=== PATIENT | male | born 1945 | race Caucasian/White ===

== ENCOUNTER 2020-01-26 09:01 | Outpatient (REF) | payer MEDICARE, SELFPAY ==
[2020-01-26 10:28] LABS: Glucose Urine UA NEG (NEG); Leukocyte Esterase Urine NEG (NEG); Nitrite Urine NEG (NEG); PH 5.5 (5.0-8.0); Specific Gravity - Urine 1.025 (1.005-1.025); Urine Blood TRACE (NEG); Urine Ketones NEG (NEG); Urine Protein NEG (NEG-TRACE)
[2020-01-26 10:32] LABS: Color Urine YELLOW
[2020-01-26 10:33] LABS: Appearance Urine CLEAR
[2020-01-26 10:42] LABS: Anion Gap 11 (12-20); Blood Urea Nitrogen 16 mg/dL (9-16); Calcium 9.7 mg/dL (8.4-10.2); Carbon Dioxide 28 mmol/L (22-29); Chloride 106 mmol/L (96-108); Estimated Glomerular Filt Rate 55; Potassium 4.7 mmol/l (3.3-5.1); Sodium 140 mmol/L (135-145)
[2020-01-26 10:48] LABS: RBC Urine 0 /HPF (0); Squamous Epithelial Cell Urine TRACE /LPF; WBC Urine 0 /HPF (0-4)
[2020-01-26 11:07] LABS: Creatinine Urine 180.34 mg/dL; Microalbum/Creatinine Ratio Ur 13.8 ug/mg cr
[2020-01-26 11:09] LABS: Phosphorus 2.4 mg/dL (2.7-4.5)
[2020-01-26 13:40] LABS: Renal w Reflex Lab Use Only Order verified
== END 2020-01-26 09:02 | disposition home or self-care (01) ==
LOC: HO.LAB 09:01
PROVIDERS: PCP Internal Medicine; Visit Provider Internal Medicine Nephrology
DX: I13.0 Hypertensive heart and chronic kidney disease with heart failure and stage 1 through stage 4 chronic kidney disease, or unspecified chronic kidney disease (principal); N18.30 Chronic kidney disease, stage 3 unspecified; I50.9 Heart failure, unspecified; N28.9 Disorder of kidney and ureter, unspecified; N28.1 Cyst of kidney, acquired; E83.52 Hypercalcemia
CPT/HCPCS: 80051; 81001; 81003; 82043; 82310; 82565; 84100; 84520

== ENCOUNTER 2020-03-14 09:21 | Outpatient (REF) | payer MEDICARE, SELFPAY ==
[2020-03-14 11:02] LABS: Alanine Aminotransferase 24 U/L (0-40); Albumin Level 4.5 g/dL (3.5-5.0); Alkaline Phosphatase 85 U/L (39-117); Anion Gap 15 (12-20); Aspartate Amino Transferase 19 U/L (5-37); Bilirubin Total 0.6 mg/dL (0.0-1.0); Blood Urea Nitrogen 16 mg/dL (9-16); Calcium 10.2 mg/dL (8.4-10.2); Carbon Dioxide 29 mmol/L (22-29); Chloride 102 mmol/L (96-108); Cholesterol 166 mg/dL; Estimated Glomerular Filt Rate 54; Glucose Fasting 87 mg/dL (60-99); HDL Cholesterol 51 mg/dL; LDL Cholesterol Calculated 86 mg/dl; Potassium 4.9 mmol/l (3.3-5.1); Sodium 141 mmol/L (135-145); Triglycerides 148 mg/dL
[2020-03-14 11:23] LABS: Vitamin D 25-OH Total 26.8 ng/mL (>30)
== END 2020-03-14 09:22 | disposition home or self-care (01) ==
LOC: HO.LAB 09:21
PROVIDERS: Absent Provider Nurse Practitioner Family; PCP Internal Medicine; Visit Provider Internal Medicine
DX: E78.00 Pure hypercholesterolemia, unspecified (principal); E55.9 Vitamin D deficiency, unspecified
CPT/HCPCS: 80053; 80061; 82306

== ENCOUNTER → 2020-04-27 09:46 | Outpatient (BNVA) | payer MEDICARE, SELFPAY | PROVIDERS: PCP Internal Medicine; Visit Provider Internal Medicine Pulmonary Disease | DX: J44.9 Chronic obstructive pulmonary disease, unspecified (principal); R05 Cough; R06.01 Orthopnea; R91.8 Other nonspecific abnormal finding of lung field | CPT/HCPCS: 99202 ==

== ENCOUNTER 2020-05-11 10:13 | Outpatient (REF) | payer MEDICARE, SELFPAY ==
--- NOTE | 2020-05-11 10:16 | CT_ITS ---
EXAMINATION: CT CHEST WITHOUT CONTRAST CLINICAL INFORMATION: Pulmonary nodule. COMPARISON: Previous chest CT April 2017 TECHNIQUE: Multidetector volumetric CT imaging of the chest was done. Axial MIP volume rendering provided. Sagittal and coronal reformatted images were obtained. This CT examination was performed using dose optimization techniques as appropriate, variously including the following: *Automated exposure control *Adjustment of mA and/or kV according to patient size (this includes techniques or standardized protocols for targeted exams where dose is matched to indication/reason for exam; i.e. 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 There are areas of increased peripheral interstitial markings with increased peripheral reticulation and traction bronchiolectasis seen in the bilateral upper lobes, left greater than right. This does not appear appreciably changed. No pulmonary nodule is seen. MEDIASTINUM: The visualized thyroid gland is normal. There are small mediastinal lymph nodes that are stable. No enlarged lymph nodes are seen. The heart does not appear enlarged. There is no pericardial effusion. There is no coronary artery calcification. The aortic arch and descending thoracic aorta are upper normal in caliber. PLEURA: There is no pleural effusion. No pleural mass or thickening. AXILLA: No lymphadenopathy. UPPER ABDOMEN: The gallbladder has been removed. OSSEOUS STRUCTURES: There are degenerative changes of the spine. There is slight loss of height of the 9 vertebral body questionable for mild old compression fracture. This appears unchanged. CT/CT chest wo con IMPRESSION: Mild paraseptal emphysema. Mild bilateral upper lung interstitial disease similar to April 2017 exam. No pulmonary nodule seen. Mild coronary artery calcification. Upper normal-size thoracic aorta.
== END 2020-05-11 10:14 | disposition home or self-care (01) ==
LOC: HO.CT 10:13
PROVIDERS: Visit Provider Internal Medicine Pulmonary Disease
DX: R91.8 Other nonspecific abnormal finding of lung field (principal)
CPT/HCPCS: 71250

== ENCOUNTER 2020-05-18 09:44 | Outpatient (REF) | payer MEDICARE, SELFPAY | END 2020-05-18 09:45 | disposition home or self-care (01) | LOC: HO.RESP 09:44 | PROVIDERS: Visit Provider Internal Medicine Pulmonary Disease | DX: J44.9 Chronic obstructive pulmonary disease, unspecified (principal) | CPT/HCPCS: 99212 ==

== ENCOUNTER → 2020-06-01 13:49 | Outpatient (REF) | payer MEDICARE, SELFPAY ==
--- NOTE | 2020-06-01 13:53 | CA_ITS ---
Transthoracic Echocardiogram Patient (Last, First, Middle): Richard Hardwick, Gender: Male Date of : 1945 Age: 75 Procedure Date: 06/01/2020 Procedure Type: Transthoracic Echocardiogram Location: OP Height: 175.26 cm Weight: 83.01 kg BSA: 1.99 m2 Heart Rate: bpm BP: 150 / 78 mmHg Supervisor Assembly Room: OLIVE Mejia MD: Rodrigo Medel MD Supervisor Opening And Picking: Jett Christianson MD Symptoms: R06.01 - Orthopnea Study Quality: Good ECG Rhythm: Sinus Conclusions: - Essentially normal study for his age Findings Left Ventricle Normal left ventricular size, thickness, and systolic function. The visually estimated ejection fraction is between 60-65%. Spectral Doppler is indicative of an impaired relaxation filling pattern. E/E prime ratio is <8, consistent with normal filling pressures. Evidence suggests grade I (mild) diastolic dysfunction. Right Ventricle Normal right ventricular cavity size and systolic function. Atria Both atria are normal in size. Interatrial shunt cannot be excluded. Aortic Valve Normal aortic valve structure and function. There is no aortic valve stenosis. There is no aortic valve regurgitation. Mitral Valve Normal mitral valve structure and function. There is trace mitral valve regurgitation. There is no mitral valve stenosis. Pulmonic Valve The pulmonic valve was not well visualized. Tricuspid Valve Likely normal tricuspid valve structure and function. There is trace tricuspid valve regurgitation. The right ventricular systolic pressure is normal. The right ventricular systolic pressure is 17 mmHg. Normal right atrial pressure. There is no evidence of pulmonary hypertension. Great Vessels All visible segments of the aorta are normal in size. The pulmonary artery was not well visualized. Venous The inferior vena cava is normal in size and collapses greater than 50% with inspiration. Pericardium/Pleural There is no evidence of pericardial effusion. Prior Study Comparison No prior study available for comparison. Recommendations, Care & Conclusions Recommend contrast study to evaluate intracardiac shunting. Measurements 2D Linear Measurements IVSd: 1.04 0.6-0.9/0.6-1.0 cm LVIDd: 4.18 3.9-5.3/4.2-5.9 cm LVIDd Index: 2.10 2.4-3.2/2.2-3.1 cm/m2 LVIDs: 2.25 2.0-3.6 cm LVPWd: 1.05 0.7-1.1 cm Ao Root: 3.70 2.1-3.5 cm LA Diam: 3.30 2.7-3.8/3.0-4.0 cm LAIDs Index: 1.66 1.5-2.3 cm/m2 LV Mass: 180.40 67-162/88-224 g LV Mass Index: 90.65 43-95/49-115 g/m2 LVOT Diam: 2.20 3.0+(-)1.3 cm 2D Systolic Function EF 4C: 55.20 >55% EF 2C: 70.50 >55% EF BiP: 65.20 >55% Mitral Valve MV Pk E: 0.75 MV PK A: 0.85 MV Decel Time: 250.00 E/A: 0.90 E'Lateral: 9.14 E'Medial: 6.96 E/E' Med: 10.80 E/E' Lat: 8.20 PHT: 73.00 MVA PHT: 3.01 Decel Hunt: 3.01 Aortic Valve AoV Pk Filipe: 1.81 AoV Mn Filipe: 1.12 AoV VTI: 0.33 AoV Pk Grad: 13.00 Aov Mn Grad: 6.00 JUSTEN Cont.VTI: 2.79 LVOT LVOT Pk Filipe: 1.35 LVOT Mn Filipe: 0.83 LVOT VTI: 0.24 LVOT Pk Grad: 7.00 LVOT Mn Grad: 3.00 LVOT Diam: 2.20 LVOT Area: 3.80 Diastolic Function MV Pk E: 0.75 MV Pk A: 0.85 E/A: 0.90 E'Medial: 6.96 E/E' Med: 10.80 E' Laterial: 9.14 E/E' Lat: 8.20 Tricuspid Valve TR Pk Filipe: 1.89 TR Pk Grad: 14.00 RA Press: 3.00 RVSP: 17.00 Great Vessels Aorta Ao Root-2D: 3.70 2.0-3.7 cm Ao Asc: 3.30 2.1-3.4 cm Ao Arch: 3.10 Updated in Other Vendor System with Status of Final Jett Christianson MD electronically signed on 06/02/2020 12:42:25 PM with status of Final
== END ==
LOC: HO.CARD 13:49
PROVIDERS: PCP Internal Medicine; Visit Provider Internal Medicine Pulmonary Disease
DX: R06.01 Orthopnea (principal)
CPT/HCPCS: 93306

== ENCOUNTER → 2020-06-22 10:45 | Outpatient (BNVA) | payer MEDICARE, SELFPAY | PROVIDERS: PCP Internal Medicine; Visit Provider Internal Medicine Pulmonary Disease | DX: J44.9 Chronic obstructive pulmonary disease, unspecified (principal); R91.8 Other nonspecific abnormal finding of lung field; Z87.891 Personal history of nicotine dependence | CPT/HCPCS: 99212 ==

== ENCOUNTER 2020-09-06 09:11 | Outpatient (REF) | payer MEDICARE, SELFPAY ==
[2020-09-06 10:12] LABS: MANUAL DIFF FLAG NO
[2020-09-06 10:16] LABS: Basophils Absolute Auto 0.1 X10*3/uL (0.0-0.2); Basophils Percent Auto 0.8 % (0-2); Eosinophils Absolute Auto 0.5 X10*3/uL (0.0-0.4); Eosinophils Percent Auto 4.7 % (0-4); Hematocrit 44.3 % (42-52); Hemoglobin 14.3 g/dl (14.0-18.0); Imm Gran Abs Auto 0.04 X10*3/uL (0.00-0.03); Imm Gran Pct Auto 0.4 % (0.0-0.4); Lymphocytes Absolute Auto 2.6 X10*3/uL (1.2-4.9); Lymphocytes Percent Auto 25.3 % (20-40); Mean Corpuscular HGB Conc 32.3 g/dl (31.0-36.0); Mean Corpuscular Hemoglobin 28.9 pg (27.0-33.0); Mean Corpuscular Volume 89.5 fL (80-98); Mean Platelet Volume 9.2 fL (9.4-12.4); Monocytes Absolute Auto 0.8 X10*3/uL (0.1-1.2); Monocytes Percent Auto 7.9 % (2-11); Neutrophils Absolute Auto 6.3 X10*3/uL (2.0-8.3); Neutrophils Percent Auto 60.9 % (45-73); Platelet Count 392 X10*3/uL (160-400); Red Blood Count 4.95 X10*6/uL (4.60-5.80); Red Cell Distribution Width 14.3 % (11.0-16.0); White Blood Count 10.4 X10*3/uL (4.8-10.8)
[2020-09-06 10:41] LABS: Phosphorus 2.8 mg/dL (2.7-4.5)
[2020-09-06 10:44] LABS: Alanine Aminotransferase 21 U/L (0-40); Albumin Level 4.5 g/dL (3.5-5.0); Alkaline Phosphatase 84 U/L (39-117); Anion Gap 12 (12-20); Aspartate Amino Transferase 15 U/L (5-37); Bilirubin Total 0.7 mg/dL (0.0-1.0); Blood Urea Nitrogen 18 mg/dL (9-16); Calcium 10.3 mg/dL (8.4-10.2); Carbon Dioxide 28 mmol/L (22-29); Chloride 104 mmol/L (96-108); Cholesterol 158 mg/dL; Estimated Glomerular Filt Rate 55; Glucose Fasting 111 mg/dL (60-99); HDL Cholesterol 50 mg/dL; LDL Cholesterol Calculated 83 mg/dl; Potassium 4.4 mmol/L (3.3-5.1); Sodium 140 mmol/L (135-145); Triglycerides 128 mg/dL
[2020-09-06 11:38] LABS: Renal w Reflex Lab Use Only Order verified
[2020-09-10 12:16] LABS: Vitamin D 25-OH, D2 <4 ng/mL; Vitamin D 25-OH, D3 28 ng/mL; Vitamin D 25-OH, Total 28 ng/mL (30-100)
== END 2020-09-06 09:12 | disposition home or self-care (01) ==
LOC: HO.LAB 09:11
PROVIDERS: Nurse Practitioner Family; PCP Internal Medicine; Visit Provider Internal Medicine Nephrology
DX: E78.00 Pure hypercholesterolemia, unspecified (principal); E78.5 Hyperlipidemia, unspecified; J45.909 Unspecified asthma, uncomplicated; I13.0 Hypertensive heart and chronic kidney disease with heart failure and stage 1 through stage 4 chronic kidney disease, or unspecified chronic kidney disease; N18.30 Chronic kidney disease, stage 3 unspecified; N28.1 Cyst of kidney, acquired; N28.9 Disorder of kidney and ureter, unspecified; E83.52 Hypercalcemia
CPT/HCPCS: 36415; 80053; 80061; 82306; 84100; 85025

== ENCOUNTER → 2020-10-12 16:01 | Outpatient (BNVA) | payer MEDICARE, SELFPAY | PROVIDERS: PCP Internal Medicine; Visit Provider Urology | DX: N28.1 Cyst of kidney, acquired (principal) | CPT/HCPCS: 99212 ==

== ENCOUNTER → 2020-10-26 09:53 | Outpatient (BNVA) | payer MEDICARE, SELFPAY | PROVIDERS: PCP Internal Medicine; Visit Provider Internal Medicine Pulmonary Disease | DX: J44.9 Chronic obstructive pulmonary disease, unspecified (principal); R91.8 Other nonspecific abnormal finding of lung field | CPT/HCPCS: 99212 ==

== ENCOUNTER 2020-11-09 09:29 | Outpatient (REF) | payer MEDICARE, SELFPAY ==
[2020-11-09 10:35] LABS: MANUAL DIFF FLAG NO
[2020-11-09 10:46] LABS: Basophils Absolute Auto 0.1 X10*3/uL (0.0-0.2); Basophils Percent Auto 1.3 % (0-2); Eosinophils Absolute Auto 0.6 X10*3/uL (0.0-0.4); Eosinophils Percent Auto 7.4 % (0-4); Hematocrit 44.9 % (42-52); Hemoglobin 14.6 g/dl (14.0-18.0); Imm Gran Abs Auto 0.03 X10*3/uL (0.00-0.03); Imm Gran Pct Auto 0.4 % (0.0-0.4); Lymphocytes Absolute Auto 2.5 X10*3/uL (1.2-4.9); Mean Corpuscular HGB Conc 32.5 g/dl (31.0-36.0); Mean Corpuscular Hemoglobin 28.6 pg (27.0-33.0); Mean Corpuscular Volume 87.9 fL (80-98); Mean Platelet Volume 9.4 fL (9.4-12.4); Monocytes Absolute Auto 0.8 X10*3/uL (0.1-1.2); Monocytes Percent Auto 8.8 % (2-11); Neutrophils Absolute Auto 4.5 X10*3/uL (2.0-8.3); Neutrophils Percent Auto 53.1 % (45-73); Platelet Count 368 X10*3/uL (160-400); Red Blood Count 5.11 X10*6/uL (4.60-5.80); White Blood Count 8.5 X10*3/uL (4.8-10.8)
[2020-11-09 10:57] LABS: Alanine Aminotransferase 19 U/L (0-40); Albumin Level 4.4 g/dL (3.5-5.0); Alkaline Phosphatase 88 U/L (39-117); Anion Gap 10 (12-20); Aspartate Amino Transferase 17 U/L (5-37); Bilirubin Total 0.6 mg/dL (0.0-1.0); Blood Urea Nitrogen 18 mg/dL (9-16); Calcium 10.3 mg/dL (8.4-10.2); Carbon Dioxide 29 mmol/L (22-29); Chloride 104 mmol/L (96-108); Cholesterol 142 mg/dL; Estimated Glomerular Filt Rate 46; Glucose Fasting 106 mg/dL (60-99); HDL Cholesterol 43 mg/dL; LDL Cholesterol Calculated 79 mg/dl; Potassium 4.9 mmol/L (3.3-5.1); Sodium 138 mmol/L (135-145); Total Protein 7.9 g/dL (6.5-8.0); Triglycerides 102 mg/dL
[2020-11-09 11:21] LABS: Vitamin D 25-OH Total 27.7 ng/mL (>30)
== END 2020-11-09 09:30 | disposition home or self-care (01) ==
LOC: HO.LAB 09:29
PROVIDERS: PCP Internal Medicine; Visit Provider Internal Medicine
DX: E78.00 Pure hypercholesterolemia, unspecified (principal); I10 Essential (primary) hypertension; K21.9 Gastro-esophageal reflux disease without esophagitis
CPT/HCPCS: 36415; 80053; 80061; 82306; 85025

== ENCOUNTER 2020-12-10 12:11 | Emergency (ER) | payer MEDICARE, SELFPAY ==
--- NOTE | ~2020-12-10 | XR_ITS ---
EXAMINATION: XR CHEST CLINICAL INFORMATION: Cough COMPARISON: Previous chest x-ray August [address] May 2020 TECHNIQUE: Frontal view of the chest was obtained. FINDINGS: The cardiac and mediastinal contours are stable. The lungs are clear. There is no pleural effusion or pneumothorax. There may be mild midthoracic vertebral body compression fractures. There is bulge previous chest CT scan. No acute bone abnormality is seen. XR/XR chest 1V IMPRESSION: No evidence for acute disease in the chest.
[2020-12-10 12:24] VITALS: BP 183/72; PULSE 78; RESP 16; TEMP 36.7; O2SAT 94; BMI 28.6
[2020-12-10 13:20] LABS: Influenza A PCR NEGATIVE (Negative); Influenza B PCR NEGATIVE (Negative); Resp Syncy Virus RNA Qual PCR NEGATIVE (Negative); SARS COV2 PCR INHOUSE NEGATIVE (Negative)
[2020-12-10 15:17] VITALS: BP 157/73; PULSE 75; RESP 16; TEMP 36.6; O2SAT 97
--- NOTE | 2020-12-10 16:23 | ED_ITS ---
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 He states that this cough has resulted in him having pain in his upper abdomen as chest wall due to difficulty in controlling the cough. He is former smoker but denies any history of COPD or asthma as well as denies any history of diabetes. Patient denies any associated fever, chills, sore throat, GI or symptoms and denies any increase in shortness of breath or bilateral lower extremity swelling. Patient has had both COVID-19 vaccines. Related Data Home Medications Medication Instructions Recorded Confirmed cholecalciferol (vitamin D3) 50 50 mcg PO DAILY 02/12/20 11/10/20 mcg (2,000 unit) tablet simethicone 125 mg chewable tablet 125 mg PO BID-QID PRN 02/12/20 11/10/20 (Gas Relief (simethicone)) dicyclomine 10 mg capsule [id number] mg PO QID PRN 03/17/20 11/10/20 budesonide-formoterol HFA 80 2 puff INHALATION BID 10/12/20 11/10/20 mcg-4.5 mcg/actuation aerosol inhaler cetirizine 10 mg tablet 10 mg PO DAILY PRN 10/12/20 11/10/20 ketotifen fumarate 0.025 % (0.035 1 drp OPHTHALMIC-RIGHT TID PRN 10/12/20 11/10/20 %) eye drops Previous Rx's Medication Instructions Recorded montelukast 10 mg tablet 10 mg PO BEDTIME 90 Days #90 tab 04/26/20 ipratropium 0.5 mg-albuterol 3 mg 3 ml INHALATION Q4-6H PRN 30 Days 04/27/20 (2.5 mg base)/3 mL nebulization #270 ml soln fluticasone propionate 50 1 spray INTRANASAL DAILY #48 ml 06/16/20 mcg/actuation nasal spray,suspension amlodipine 5 mg tablet 5 mg PO DAILY 90 Days #90 tab 07/13/20 albuterol sulfate 90 mcg/actuation 2 puff INHALATION Q6H PRN #25.5 g 08/17/20 aerosol inhaler atorvastatin 40 mg tablet 40 mg PO DAILY 90 Days #90 tab 11/14/20 hydroxyzine HCl 25 mg tablet 25 mg PO BID PRN 7 Days #14 tab 11/14/20 Trelegy Ellipta 100 mcg-62.5 1 inh PO DAILY #60 ea NS 12/05/20 mcg-25 mcg powder for inhalation (ixljwbimzws-zxxzlamtf-kekmgkuc) acetaminophen 500 mg tablet 500 mg PO Q6H PRN 90 Days #90 tab 12/08/20 lisinopril 10 mg tablet 10 mg PO DAILY 90 Days #90 tab 12/09/20 pantoprazole 40 mg tablet,delayed 40 mg PO DAILY 90 Days #90 tab 12/09/20 release benzonatate 100 mg capsule 100 mg PO TID PRN #10 cap 12/10/20 (Jeanette Falcon) Allergies Allergy/AdvReac Type Severity Reaction Status Date / Time Tetanus Toxoid Adsorbed Allergy Intermediate syncope Verified 12/10/20 12:34 Review of Systems Review of Systems: Pertinent positives and negatives as stated in HPI 10 point review of systems is otherwise negative. [facility] Past Medical History Source: nursing notes reviewed Medical History Allergic rhinitis Cough variant asthma Essential hypertension Foot callus GERD (gastroesophageal reflux disease) Mild asthma Moderate asthma Pure hypercholesterolemia Screening for colon cancer Urticaria Surgical History History of colonoscopy History of laparoscopic cholecystectomy Hx of cataract surgery Family History Family History Father No problems noted. Mother No problems noted. Paternal Grandmother Cancer Social History Social History Housing: Apartment Alcohol intake: current Alcohol intake frequency: holidays/special occasions only Alcohol type: beer Patient Tobacco Use Status: Former Tobacco user Advance Directives: Yes Advance Directives Information Provided: Yes Advance Directives on File: No service: No Current occupational status: retired Physical Exam Vital Signs: Vital Signs: Last Vital Signs Temp 97.9 F 12/10/20 15:17 Pulse 75 12/10/20 15:17 Resp 16 12/10/20 15:17 BP 157/73 H 12/10/20 15:17 Pulse Ox 97 12/10/20 15:17 Body Mass Index 28.6 VITAL SIGNS: Reviewed. GENERAL: Well developed, well nourished, in no acute distress. HEAD: Normocephalic/atraumatic EYES: PERRLA, EOMI OROPHARYNX: no oral lesions noted, posterior pharynx clear LUNGS: Patient speaking in full sentences, no tachypnea, no rhonchi, normal breath sounds. SpO2<97> CARDIOVASCULAR: Regular rate and rhythm without noted murmurs, no JVD or lower extremity edema. ABDOMEN: Soft, non-tender, non-distended with bowel sounds. SKIN: Inspection of the skin reveals no rashes NEUROLOGIC: Alert and oriented x 4. Strength and sensation to light touch were grossly intact x 4. Course Course Course Narrative: 75-year-old male with history and clinical presentation consistent with persistent cough without evidence to suggest CHF, COPD, infectious etiologies. COVID-19 testing as well as chest x-ray are without acute findings. Discussed with the patient and his son at bedside interventions at home wall patient awaits follow-up appointment with his primary care provider in the part february. Medical Decision Making Lab Data Labs: Lab Results 12/10/20 Range/Units 12:36 Coronavirus (PCR) NEGATIVE (Negative) Influenza Type A (PCR) NEGATIVE (Negative) Influenza Type B (PCR) NEGATIVE (Negative) RSV RNA Qual (PCR) NEGATIVE (Negative) Discharge Plan Discharge Clinical Impression: Cough Patient Disposition: Home, Self-Care Instructions: Benzonatate (By mouth), Cold Symptoms (ED) Additional Instructions: 1. Reanude todos los medicamentos caseros seg?n lo prescrito. 2. Humidificador de vapor fr?o junto a la cama mientras duerme por la noche. Tambi?n recomiende mildred ligera elevaci?n en las almohadas. 3. Danny un seguimiento con hirsch proveedor de atenci?n primaria el ifeoma por la ma?linda para mildred reevaluaci?n y m?s Manejo ambulatorio. Regrese a la celio de emergencias por un empeoramiento carmen de los s?ntomas. Prescriptions: New benzonatate [Tessalon Perles] 100 mg capsule 100 mg PO TID PRN (Reason: cough) Qty: 10 RF: 0 No Action montelukast 10 mg tablet 10 mg PO BEDTIME 90 Days Qty: 90 RF: 3 fluticasone propionate 50 mcg/actuation spray,suspension 1 spray intranasal DAILY Qty: 48 RF: 3 albuterol sulfate 90 mcg/actuation HFA aerosol inhaler 2 puff inhalation Q6H PRN (Reason: for wheezing) Qty: 25.5 RF: 1 hydroxyzine HCl 25 mg tablet 25 mg PO BID PRN (Reason: itching) 7 Days Qty: 14 RF: 0 atorvastatin 40 mg tablet 40 mg PO DAILY 90 Days Qty: 90 RF: 3 Trelegy Ellipta 100-62.5-25 mcg blister with device 1 inh PO DAILY Qty: 60 RF: 6 acetaminophen 500 mg tablet 500 mg PO Q6H PRN (Reason: fever or pain) 90 Days Qty: 90 RF: 0 pantoprazole 40 mg tablet,delayed release (DR/EC) 40 mg PO DAILY 90 Days Qty: 90 RF: 3 lisinopril 10 mg tablet 10 mg PO DAILY 90 Days Qty: 90 RF: 0 dicyclomine 10 mg capsule [id number] mg PO QID PRN (Reason: cramps) RF: 0 cholecalciferol (vitamin D3) 50 mcg (2,000 unit) tablet 50 mcg PO DAILY RF: 0 simethicone [Gas Relief (simethicone)] 125 mg tablet,chewable 125 mg PO BID-QID PRNRF: 0 amlodipine 5 mg tablet 5 mg PO DAILY 90 Days Qty: 90 RF: 3 ipratropium-albuterol 0.5 mg-3 mg(2.5 mg base)/3 mL solution for nebulization 3 ml inhalation Q4-6H PRN (Reason: wheezing) 30 Days Qty: 270 RF: 6 cetirizine 10 mg tablet 10 mg PO DAILY PRN (Reason: allergies) RF: 0 ketotifen fumarate 0.025 % (0.035 %) drops 1 drp ophthalmic-Right TID PRNRF: 0 budesonide-formoterol 80-4.5 mcg/actuation HFA aerosol inhaler 2 puff inhalation BID RF: 0 Referrals: Linda Heck MD [Primary Care Provider] - 2 days Print Language: Mongolian
== END 2020-12-10 16:49 | disposition home or self-care (01) ==
PROVIDERS: Emergency Provider Student in an Organized Health Care Education/Training Program; PCP Internal Medicine
DX: R05 Cough (principal); Z20.822 Contact with and (suspected) exposure to COVID-19; I10 Essential (primary) hypertension; J45.909 Unspecified asthma, uncomplicated; Z79.899 Other long term (current) drug therapy
CPT/HCPCS: 0241U; 36415; 71045; 99283; 99284

== ENCOUNTER 2020-12-14 09:39 | Outpatient (REF) | payer MEDICARE, SELFPAY ==
[2020-12-14 11:08] LABS: Anion Gap 11 (12-20); Blood Urea Nitrogen 13 mg/dL (9-16); Calcium 10.2 mg/dL (8.4-10.2); Carbon Dioxide 28 mmol/L (22-29); Chloride 105 mmol/L (96-108); Estimated Glomerular Filt Rate 50; Potassium 4.8 mmol/L (3.3-5.1); Sodium 139 mmol/L (135-145)
== END 2020-12-14 09:40 | disposition home or self-care (01) ==
LOC: HO.LAB 09:39
PROVIDERS: PCP Internal Medicine; Visit Provider Internal Medicine Nephrology
DX: N28.1 Cyst of kidney, acquired (principal); I12.9 Hypertensive chronic kidney disease with stage 1 through stage 4 chronic kidney disease, or unspecified chronic kidney disease; N18.31 Chronic kidney disease, stage 3a
CPT/HCPCS: 36415; 80051; 82310; 82565; 84520

== ENCOUNTER 2021-01-06 09:47 | Outpatient (REF) | payer MEDICARE, SELFPAY ==
[2021-01-06 11:23] LABS: Alanine Aminotransferase 19 U/L (0-40); Albumin Level 4.3 g/dL (3.5-5.0); Alkaline Phosphatase 80 U/L (39-117); Anion Gap 10 (12-20); Aspartate Amino Transferase 16 U/L (5-37); Bilirubin Total 0.8 mg/dL (0.0-1.0); Blood Urea Nitrogen 13 mg/dL (9-16); Calcium 10.1 mg/dL (8.4-10.2); Carbon Dioxide 29 mmol/L (22-29); Chloride 105 mmol/L (96-108); Cholesterol 143 mg/dL; Estimated Glomerular Filt Rate 49; Glucose Fasting 94 mg/dL (60-99); HDL Cholesterol 43 mg/dL; LDL Cholesterol Calculated 72 mg/dl; Potassium 4.8 mmol/L (3.3-5.1); Sodium 139 mmol/L (135-145); Total Protein 7.7 g/dL (6.5-8.0); Triglycerides 144 mg/dL
[2021-01-06 11:49] LABS: Vitamin D 25-OH Total 26.2 ng/mL (>30)
== END 2021-01-06 09:48 | disposition home or self-care (01) ==
LOC: HO.LAB 09:47
PROVIDERS: PCP Internal Medicine; Visit Provider Internal Medicine
DX: E78.00 Pure hypercholesterolemia, unspecified (principal); E78.5 Hyperlipidemia, unspecified; E55.9 Vitamin D deficiency, unspecified
CPT/HCPCS: 36415; 80053; 80061; 82306

== ENCOUNTER → 2021-02-06 12:44 | Outpatient (BNVA) | payer MEDICARE, SELFPAY | PROVIDERS: PCP Internal Medicine; Referring Provider Internal Medicine; Visit Provider Nurse Practitioner | DX: Z13.89 Encounter for screening for other disorder (principal) | CPT/HCPCS: 99202 ==

== ENCOUNTER → 2021-04-13 10:44 | Outpatient (BNVA) | payer MEDICARE, SELFPAY | PROVIDERS: PCP Internal Medicine; Visit Provider Internal Medicine Pulmonary Disease | DX: J44.9 Chronic obstructive pulmonary disease, unspecified (principal); R91.8 Other nonspecific abnormal finding of lung field; R05.3 Chronic cough | CPT/HCPCS: 99212 ==

== ENCOUNTER 2021-04-20 12:43 | Outpatient (REF) | payer MEDICARE, SELFPAY ==
--- NOTE | ~2021-04-20 | CT_ITS ---
EXAMINATION: CT CHEST WITHOUT CONTRAST CLINICAL INFORMATION: Abnormal lung findings. COMPARISON: Chest 12/10/2020. CT chest 05/11/2020. TECHNIQUE: Multidetector volumetric CT imaging of the chest was done. Axial MIP volume rendering provided. Sagittal and coronal reformatted images were obtained. This CT examination was performed using dose optimization techniques as appropriate, variously including the following: *Automated exposure control *Adjustment of mA and/or kV according to patient size (this includes techniques or standardized protocols for targeted exams where dose is matched to indication/reason for exam; i.e. 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 LUNGS: There is centrilobular and paraseptal emphysema. There is bilateral apical parenchymal scarring and pleural thickening. There are subpleural reticular interstitial changes in the left upper lobe posterior, lateral segment, apical and anterior segment right upper lobe. There is mild traction bronchiectasis in both upper lobes. There is no consolidation or mass or visible pulmonary nodule. MEDIASTINUM: The thyroid lobes are symmetrical and normal. The central trachea and the bronchi are widely patent. The heart size and the great vessels are normal. There are small shotty lymph nodes in the pretracheal space and the aortic window measuring less than 1 cm in short axis. PLEURA: There is no pleural effusion. No pleural mass or thickening. AXILLA: No lymphadenopathy. UPPER ABDOMEN: Visualized liver, spleen, pancreas and bilateral adrenal glands unremarkable. OSSEOUS STRUCTURES: No lytic or sclerotic process seen. There is mild ventral spondylosis mid dorsal spine. CT/CT chest wo con IMPRESSION: Mild centrilobular and paraseptal emphysema with minimal bilateral upper lobe especially left upper lobe interstitial changes. No pulmonary nodule, mass or consolidation seen. No major change compared to previous CT chest study 05/11/2020. Fleischner guidelines were followed.
== END 2021-04-20 12:44 | disposition home or self-care (01) ==
LOC: HO.CT 12:43
PROVIDERS: Visit Provider Internal Medicine Pulmonary Disease
DX: R91.8 Other nonspecific abnormal finding of lung field (principal)
CPT/HCPCS: 71250

== ENCOUNTER → 2021-05-10 10:13 | Outpatient (BNVA) | payer MEDICARE, SELFPAY | PROVIDERS: PCP Internal Medicine; Visit Provider Internal Medicine Pulmonary Disease | DX: J44.9 Chronic obstructive pulmonary disease, unspecified (principal); R91.8 Other nonspecific abnormal finding of lung field; R05.3 Chronic cough | CPT/HCPCS: 99212 ==

== ENCOUNTER 2021-05-16 07:36 | Day surgery (SDC) | payer MEDICARE, SELFPAY ==
[2021-05-11 10:07] VITALS: BMI 27.6
--- NOTE | 2021-05-15 09:16 | P.CONAN_ITS ---
Documented by User: Corine Maldonado NP 05/15/21 09:17 HPI - Anesthesia Eval Consult details Narrative: 76yo M for Colonoscopy PMFSH Active Problems Active Problems: All Active Problems (Updated 04/13/21 @ 11:05 by Rodrigo Medel MD) Chronic cough (Acute) Tubular adenoma of colon (Acute) Adult general medical exam (Acute) Glaucoma (Acute) Foot callus (Acute) Screening for colon cancer (Acute) Complex renal cyst (Acute) Urticaria (Acute) Pulmonary nodules (Acute) Asthma-COPD overlap syndrome (Acute) Orthopnea (Acute) Cough (Acute) Moderate asthma (Acute) Pure hypercholesterolemia (Acute) Cough variant asthma (Acute) Allergic rhinitis (Acute) Mild asthma (Acute) Essential hypertension (Acute) GERD (gastroesophageal reflux disease) (Acute) Past Medical History Medical History Allergic rhinitis Cough variant asthma Essential hypertension Foot callus GERD (gastroesophageal reflux disease) Mild asthma Moderate asthma Pure hypercholesterolemia Urticaria Family History Family History Father No problems noted. Mother No problems noted. Paternal Grandmother Cancer Surgical History Surgical History History of colonoscopy History of laparoscopic cholecystectomy Hx of cataract surgery Social History Social History Housing: Apartment Alcohol intake: current Alcohol intake frequency: does not drink Alcohol type: beer Patient Tobacco Use Status: Former Tobacco user Quit Date: 2014 Tobacco use type: Cigarette Years Smoked: 40+ e-Cigarette/Vaping Use: Never Used Second Hand Smoke Exposure: No Are you DNR?: No Advance Directives: No Advance Directives Information Provided: Yes Advance Directives on File: No service: No Current occupational status: retired Meds Allergies Allergy/AdvReac Type Severity Reaction Status Date / Time Tetanus Toxoid Adsorbed Allergy Intermediate syncope Verified 05/16/21 08:36 Home Medications Medication Instructions Recorded Confirmed Last Taken Type simethicone 125 mg chewable tablet 125 mg PO BID-QID PRN 02/12/20 05/11/21 Unknown History (Gas Relief (simethicone)) dicyclomine 10 mg capsule 10 - 20 mg PO QID PRN 03/17/20 05/11/21 Unknown History ketotifen fumarate 0.025 % (0.035 1 drp OPHTHALMIC-RIGHT TID PRN 10/12/20 05/11/21 Unknown History %) eye drops Exam Exam Date and Time: May 15, 2021 0916 Height,Weight and Vital Signs: Height 5 ft 9 in Weight 84.822 kg Pertinent Lab Results Pertinent Lab Results: Laboratory Tests 11/09/20 01/06/21 09:45 10:25 WBC 8.5 Hgb 14.6 Hct 44.9 Plt Count 368 Sodium 139 Potassium 4.8 Chloride 105 Carbon Dioxide 29 BUN 13 Creatinine 1.40 Narrative Narrative: ECHO 05/2020 Conclusions: - Essentially normal study for his age ? ? ? Assessment and Plan Assessment Anesthesia Assessment: Chart Reviewed Documented by User: Abrahan Hernandez MD 05/16/21 08:56 PMFSH Past Medical History Medical History Allergic rhinitis Cough variant asthma Essential hypertension Foot callus GERD (gastroesophageal reflux disease) Mild asthma Moderate asthma Pure hypercholesterolemia Urticaria Family History Family History Father No problems noted. Mother No problems noted. Paternal Grandmother Cancer Family history of problems with anesthesia: No Surgical History Surgical History History of colonoscopy History of laparoscopic cholecystectomy Hx of cataract surgery History of Problems with Anesthesia: No Social History Social History Housing: Apartment Alcohol intake: current Alcohol intake frequency: does not drink Alcohol type: beer Patient Tobacco Use Status: Former Tobacco user Quit Date: 2014 Tobacco use type: Cigarette Years Smoked: 40+ e-Cigarette/Vaping Use: Never Used Second Hand Smoke Exposure: No Are you DNR?: No Advance Directives: No Advance Directives Information Provided: Yes Advance Directives on File: No service: No Current occupational status: retired Meds Allergies Allergy/AdvReac Type Severity Reaction Status Date / Time Tetanus Toxoid Adsorbed Allergy Intermediate syncope Verified 05/16/21 08:36 Home Medications Medication Instructions Recorded Confirmed Last Taken Type simethicone 125 mg chewable tablet 125 mg PO BID-QID PRN 02/12/20 05/11/21 Unknown History (Gas Relief (simethicone)) dicyclomine 10 mg capsule 10 - 20 mg PO QID PRN 03/17/20 05/11/21 Unknown History ketotifen fumarate 0.025 % (0.035 1 drp OPHTHALMIC-RIGHT TID PRN 10/12/20 05/11/21 Unknown History %) eye drops Exam Airway Mallampati Class: II TM Dist: >3cm Neck ROM: Full Loose/Missing/Broken Teeth: Yes (all permanent caps) Heart: [id number] Lungs: cta b/l Assessment and Plan Assessment Anesthesia Assessment: Anesthesia Plan Discussed Final Anesthetic Review Family History of Problems with Anesthesia: No History of Problems with Anesthesia: No NPO: Yes ASA Class: III Final Preanesthetic Review: No Changes in Pt Med Stat, Meds/Allgs Chart Reviewed , Consent Obtained/Reviewed and Anes Risks/Benef Reviewed Patient Risk: Intermediate Procedure Risk: Intermediate Assessment/Block/Sedation in SS: Assess/Block/Sedation-SS Anesthetic Plan Anesthetic Plan: MAC: and Agree w/ Assess. and Plan Disposition: Standard PACU
[2021-05-16 08:38] VITALS: BP 170/76; PULSE 76; RESP 16; TEMP 37.3; O2SAT 97
[2021-05-16] MEDS: Lactated Ringers 1,000 ML 100 ML IVCONT (08:46)
--- NOTE | 2021-05-16 08:54 | MHC.SHP ---
Pre-Procedural Eval Section A Date of Service: 05/16/21 Section B Chief Complaint: Screening Relevant Family History (Specify if Yes): No Relevant Social History: None (ex smoker) Present Medications: see Short Stay Collaborative assessment Medical History: Significant History (Allergic rhinitis Cough variant asthma Essential hypertension Foot callus GERD (gastroesophageal reflux disease) Mild asthma Moderate asthma Pure hypercholesterolemia Urticaria) History of Previous Operations: Relevant previous surgery/procedure and date(s) (History of colonoscopy History of laparoscopic cholecystectomy Hx of cataract surgery) Allergies: Allergies Allergy/AdvReac Type Severity Reaction Status Date / Time Tetanus Toxoid Adsorbed Allergy Intermediate syncope Verified 05/16/21 08:36 Review of Systems Sugical H&P ROS: Negative: Constitution, Cardiovascular, Respiratory, Neurological, Psychiatric, Hem-Onc, Allergic/Immunologic, Gastrointestinal, Genitourinary, Musculoskeletal, Integumentary, Endocrine and Eyes/Ears/Nose/Throat Exam Surgical H&P Exam: Normal: HEENT, Normal: Heart, Normal: Lungs, Normal: Extremities, Normal: Abdomen, Normal: Skin and Normal: Neurological Plan Diagnosis/Plan: Unchanged I have reviewed the history and physical and performed a pertinent physical examination on my patient. No changes have occurred unless specified.
--- NOTE | 2021-05-16 08:55 | PM.OP ---
Brief Operative Note Date of Service: 05/16/21 Pre-op diagnosis: screening Post-op diagnosis: same Procedure: see op note Surgeon: Shefali Correa MD Anesthesia: MAC Was an Bean Sprout Grower used for this Procedure?: No Estimated blood loss (mL): 0 Condition: stable Disposition: PACU
--- NOTE | 2021-05-16 08:55 | W.PM.OPN ---
Operative Note Operative Note Date of Service: 05/16/21 Narrative: Operative Information Procedure Description: Colonoscopy COLONOSCOPY Instrument: Olympus variable stiffness pediatric scope 190L and upper endoscope Colonoscopy Monitoring: Vital signs and clinical assessment, continuous EKG monitoring, Pulse oximetry, Carbon Dioxide monitoring and blood pressure monitoring were done throughout the procedure. Procedure: The patient was placed in the left lateral decubitis position and pre-procedure medications were administered. After a digital rectal examination of the ano-rectum, the video colonoscope was inserted into the rectum and advanced through the colon to transverse colon At 40 cm there was an extremely tight area of colon only able to navigate with upper endoscope and reach the transverse colon. There appeared to be extrinsic compression. There was a 7-8 mm sessile polyp removed from descending colon and 8-9 mm sessile polyp removed from sigmoid. both were removed with forceps Rectum: Retroflexion with small internal hemorrhoids, grade I Anorectum - normal Colon preparation: good Impression and Post Procedure Diagnosis: incomplete colonoscopy, extrinsic compression of sigmoid colon polyps internal hemorrhoids Plan: High fiber diet leaflet Avoid straining at stool, epsom salts and sitz bath, anusol supps or cream CT scan with PO and Iv contrast to r/o intra abdominal mass or lesions Above findings were reviewed with the patient and relevant handouts were provided if indicated.
[2021-05-16 09:58] VITALS: BP 151/83; PULSE 80; RESP 22; TEMP 36.4; O2SAT 99
[2021-05-16 10:15] VITALS: BP 158/80; PULSE 85; RESP 18; O2SAT 100
[2021-05-16 10:30] VITALS: BP 158/81; PULSE 85; RESP 16; O2SAT 100
== END 2021-05-16 11:41 | disposition home or self-care (01) ==
PROVIDERS: PCP Internal Medicine; Visit Provider Internal Medicine Gastroenterology
PROC: 0DJD8ZZ Inspection of Lower Intestinal Tract, Via Natural or Artificial Opening Endoscopic (ICD-10-PCS; CPT 45378; principal; 2021-05-16 09:10)
DX: Z12.11 Encounter for screening for malignant neoplasm of colon (principal); Z86.010 Personal history of colon polyps; D12.4 Benign neoplasm of descending colon; K63.5 Polyp of colon; K56.699 Other intestinal obstruction unspecified as to partial versus complete obstruction; K64.0 First degree hemorrhoids; K21.9 Gastro-esophageal reflux disease without esophagitis; J44.9 Chronic obstructive pulmonary disease, unspecified; J45.991 Cough variant asthma; R06.01 Orthopnea; R91.8 Other nonspecific abnormal finding of lung field; Z79.51 Long term (current) use of inhaled steroids; Z79.899 Other long term (current) drug therapy; E78.00 Pure hypercholesterolemia, unspecified; I10 Essential (primary) hypertension; Z87.891 Personal history of nicotine dependence
CPT/HCPCS: 45380; 88305; J3010

== ENCOUNTER 2021-06-07 08:17 | Outpatient (REF) | payer MEDICARE, SELFPAY ==
[2021-06-07 08:33] LABS: MANUAL DIFF FLAG NO
[2021-06-07 09:18] LABS: Basophils Absolute Auto 0.1 X10*3/uL (0.0-0.2); Basophils Percent Auto 0.7 % (0-2); Eosinophils Absolute Auto 0.7 X10*3/uL (0.0-0.4); Eosinophils Percent Auto 7.3 % (0-4); Hematocrit 42.3 % (42.0-52.0); Hemoglobin 13.7 g/dl (14.0-18.0); Imm Gran Abs Auto 0.03 X10*3/uL (0.00-0.03); Imm Gran Pct Auto 0.3 % (0.0-0.4); Lymphocytes Absolute Auto 2.7 X10*3/uL (1.2-4.9); Lymphocytes Percent Auto 27.8 % (20-40); Mean Corpuscular HGB Conc 32.4 g/dl (31.0-36.0); Mean Corpuscular Hemoglobin 28.8 pg (27.0-33.0); Mean Corpuscular Volume 88.9 fL (80.0-98.0); Mean Platelet Volume 9.3 fL (9.4-12.4); Monocytes Absolute Auto 0.8 X10*3/uL (0.1-1.2); Monocytes Percent Auto 8.7 % (2-11); Neutrophils Absolute Auto 5.3 x10*3/uL (2.0-8.3); Neutrophils Percent Auto 55.2 % (45-73); Platelet Count 433 X10*3/uL (160-400); Red Blood Count 4.76 X10*6/uL (4.60-5.80); Red Cell Distribution Width 14.3 % (11.0-16.0); White Blood Count 9.6 X10*3/uL (4.8-10.8)
[2021-06-07 09:49] LABS: Alanine Aminotransferase 15 U/L (0-40); Albumin Level 4.1 g/dL (3.5-5.0); Alkaline Phosphatase 84 U/L (39-117); Anion Gap 11 (12-20); Aspartate Amino Transferase 13 U/L (5-37); Bilirubin Total 0.6 mg/dL (0.0-1.0); Blood Urea Nitrogen 13 mg/dL (9-16); Calcium 10.3 mg/dL (8.4-10.2); Carbon Dioxide 29 mmol/L (22-29); Chloride 105 mmol/L (96-108); Cholesterol 140 mg/dL; Estimated Glomerular Filt Rate 52; Glucose Fasting 99 mg/dL (60-99); HDL Cholesterol 40 mg/dL; LDL Cholesterol Calculated 78 mg/dl; Potassium 4.8 mmol/L (3.3-5.1); Sodium 140 mmol/L (135-145); Total Protein 7.2 g/dL (6.5-8.0); Triglycerides 113 mg/dL
== END 2021-06-07 08:18 | disposition home or self-care (01) ==
LOC: HO.LAB 08:17
PROVIDERS: PCP Internal Medicine; Visit Provider Internal Medicine
DX: E78.5 Hyperlipidemia, unspecified (principal); J44.9 Chronic obstructive pulmonary disease, unspecified
CPT/HCPCS: 36415; 80053; 80061; 85025

== ENCOUNTER 2021-07-04 09:42 | Outpatient (REF) | payer MEDICARE, SELFPAY ==
--- NOTE | ~2021-07-04 | CT_ITS ---
EXAMINATION: CT ABDOMEN AND PELVIS WITHOUT CONTRAST CLINICAL INFORMATION: Other intestinal obstruction. COMPARISON: CT abdomen and pelvis 08/27/2017 TECHNIQUE: Multidetector volumetric imaging was performed from the superior aspect of the liver through the pubic symphysis with oral contrast. Sagittal and coronal reformatted images were obtained on the technologist's workstation. This CT examination was performed using dose optimization techniques as appropriate, variously including the following: *Automated exposure control *Adjustment of mA and/or kV according to patient size (this includes techniques or standardized protocols for targeted exams where dose is matched to indication/reason for exam; i.e. extremities or head) *Use of iterative reconstruction technique DLP: 440 mGy-cm FINDINGS: LUNG BASES: There is linear lingular atelectasis or scarring. The lung bases are clear. The heart size is normal. LIVER, GALLBLADDER, AND BILIARY TREE: The liver is normal in size, shape, and attenuation. No focal hepatic lesion or biliary ductal dilatation is present. The gallbladder has been surgically removed. PANCREAS: Unremarkable. SPLEEN: Unremarkable. ADRENAL GLANDS: Unremarkable. KIDNEYS AND URETERS: The kidneys are normal in size, shape, and attenuation. No hydronephrosis, hydroureter, or calculi seen.There is a small lower pole cortex 2.2 cm cyst left kidney. Mild bilateral perinephric stranding is seen. BLADDER: Unremarkable. GASTROINTESTINAL TRACT: Oral contrast opacified colon and the small bowel loops appear normal caliber. The stomach is nondistended. The appendix is normal caliber. There is minimal mesenteric fat stranding in the midabdomen similar to previous CT abdomen and pelvis exam 09/25/2017. ABDOMINAL WALL: There is a small umbilical hernia containing fat. There is a left inguinal hernia containing a loop of small bowel without any proximal bowel obstruction. No fat stranding or mural thickening seen to suspect any inflammatory process. LYMPH NODES: Normal. VASCULAR: There is atherosclerotic calcification of abdominal aorta without aneurysmal dilatation. PELVIC VISCERA: Unremarkable. OSSEOUS STRUCTURES: Unremarkable. CT/CT abdomen pelvis wo con IMPRESSION: 1. Left inguinal hernia containing a loop of sigmoid colon without any proximal bowel obstruction. The hernia is new since 09/25/2017 CT abdomen exam. 2. Small left renal cyst. Bilateral perinephric stranding. No radiopaque calculi are hydronephrosis. 3. Cholecystectomy. Fleischner guidelines were followed.
[2021-07-04] MEDS: Barium Sulfate Oral (Berry) 450 ML ORAL.SUSP 900 ML PO (12:57)
== END 2021-07-04 09:43 | disposition home or self-care (01) ==
LOC: HO.CT 09:42
PROVIDERS: PCP Internal Medicine; Visit Provider Internal Medicine Gastroenterology
DX: K56.699 Other intestinal obstruction unspecified as to partial versus complete obstruction (principal)
CPT/HCPCS: 74176

== ENCOUNTER → 2021-07-28 12:45 | Outpatient (BNVA) | payer MEDICARE, SELFPAY | PROVIDERS: PCP Internal Medicine; Referring Provider Internal Medicine; Visit Provider Nurse Practitioner | DX: K40.90 Unilateral inguinal hernia, without obstruction or gangrene, not specified as recurrent (principal); D12.6 Benign neoplasm of colon, unspecified | CPT/HCPCS: 99212 ==

== ENCOUNTER 2021-07-30 11:39 | Emergency (ER) | payer MEDICARE, SELFPAY ==
--- NOTE | ~2021-07-30 | XR_ITS ---
EXAMINATION: XR CHEST CLINICAL INFORMATION: Intubation. COMPARISON: Chest radiograph done on 12/10/2020. TECHNIQUE: Frontal view of the chest was obtained. FINDINGS: The tip of the endotracheal tube is located approximately 3.6 cm above the level of the medardo. Symmetrically expanded lung fine with low lung volume without evidence of any focal airspace disease. The heart size is within normal limits. No evidence of any pleural effusion or pneumothorax. XR/XR chest 1V IMPRESSION: 1. The tip of the endotracheal tube is located approximately 3.6 cm above the level of the medardo. 2. Bilateral clear lung fine.
--- NOTE | ~2021-07-30 | CT_ITS ---
EXAMINATION: CT HEAD WITHOUT CONTRAST (STROKE PROTOCOL) CLINICAL INFORMATION: Stroke protocol. Right-sided weakness. COMPARISON: CT of the head done on 07/15/2011. TECHNIQUE: Contiguous axial imaging was performed from the skull base to vertex without intravenous administration of contrast. This CT examination was performed using dose optimization techniques as appropriate, variously including the following: *Automated exposure control *Adjustment of mA and/or kV according to patient size (this includes techniques or standardized protocols for targeted exams where dose is matched to indication/reason for exam; i.e. extremities or head) *Use of iterative reconstruction technique DLP: 854. mGy-cm FINDINGS: Motion related artifacts are noted. Massive (8.9 x 5.2 cm at its maximum anteroposterior by transverse dimension) intraparenchymal hemorrhage is present at left frontal, parietal and temporal lobe associated with extensive vasogenic edema and midline shift measuring 1.1 cm. The contralateral right lateral ventricle appear dilated, secondary to mass effect. The suprasellar cistern is obliterated, consistent with uncal herniation. Evidence of right frontal encephalomalacia is noted at the site of prior hemorrhage as was detected on the study dated 07/15/2011. The study is technically limited due to motion related artifacts. CT/CT head for stroke IMPRESSION: Massive intraparenchymal hemorrhage (8.9 x 5.2 cm at its maximum anteroposterior by transverse dimension) at left frontal, parietal, temporal lobe associated with extensive vasogenic edema and midline shift measuring 1.1 cm. Evidence of uncal herniation is also present. This critical result was discussed with Dr. Corvi. OGLESBY at 11:59 AM on 07/30/2021. It was ascertained that the content and urgency of the report was understood at the time of direct communication.
[2021-07-30 11:50] LABS: Glucose, Whole Blood 125 mg/dL (60-115); Prothrombin Time Whole Bld POC 12.3 sec (11.1-13.5)
[2021-07-30 11:56] VITALS: BP 186/138; PULSE 115; RESP 38; O2SAT 99; BMI 34.5
--- NOTE | 2021-07-30 12:01 | PC.NURSE ---
@ NOON DR CARRASCO REQUESTS CALL OUT TO [facility] PT TX LINE MEAGAN ANSWERS, TAKES PT INFO THE ASKS TO SPEAK WITH DR DANILO CARRASCO TAKES OVER CALL RIGHT AWAY
[2021-07-30] MEDS: propofoL 1,000 MG/100 ML VIAL 15.5 MG IVCONT (12:07)
[2021-07-30] MEDS: levETIRAcetam in NaCl (iso-os) 1,000 MG/100 ML PIGGYBACK 400 MG IV (12:08)
[2021-07-30] MEDS: LORazepam 2 MG/ML VIAL IVPUSH (12:08)
[2021-07-30 12:09] LABS: Basophils Absolute Auto 0.1 X10*3/uL (0.0-0.2); Basophils Percent Auto 0.9 % (0-2); Eosinophils Absolute Auto 0.5 X10*3/uL (0.0-0.4); Eosinophils Percent Auto 3.7 % (0-4); Imm Gran Abs Auto 0.04 X10*3/uL (0.00-0.03); Imm Gran Pct Auto 0.3 % (0.0-0.4); Lymphocytes Absolute Auto 5.5 X10*3/uL (1.2-4.9); Lymphocytes Percent Auto 38.3 % (20-40); Mean Corpuscular HGB Conc 32.6 g/dl (31.0-36.0); Mean Corpuscular Hemoglobin 28.9 pg (27.0-33.0); Mean Corpuscular Volume 88.8 fL (80.0-98.0); Mean Platelet Volume 8.7 fL (9.4-12.4); Monocytes Absolute Auto 1.5 X10*3/uL (0.1-1.2); Neutrophils Absolute Auto 6.8 x10*3/uL (2.0-8.3); Neutrophils Percent Auto 46.8 % (45-73); Platelet Count 395 X10*3/uL (160-400); Red Blood Count 4.84 X10*6/uL (4.60-5.80); Red Cell Distribution Width 14.5 % (11.0-16.0); SCAN SMEAR FLAG 1; White Blood Count 14.5 X10*3/uL (4.8-10.8)
--- NOTE | 2021-07-30 12:10 | PC.NURSE ---
@ 12:10PM RETURN CALL FROM MEAGAN FROM [facility] PT TX LINE FOR DR DANILO CARRASCO TAKES OVER CALL RIGHT AWAY
[2021-07-30] MEDS: fentaNYL citrate/PF 100 MCG/2 ML VIAL IVPUSH ×3 (12:11→13:24)
[2021-07-30] MEDS: Succinylcholine Chloride 200 MG/10 ML VIAL 100 MG IVPUSH (12:13)
[2021-07-30 12:14] LABS: MANUAL DIFF FLAG SCAN
[2021-07-30 12:16] VITALS: PULSE 91; O2SAT 98
[2021-07-30 12:20] LABS: Prothrombin Time 11.8 SEC (9.9-13.0)
--- NOTE | 2021-07-30 12:21 | ED_ITS ---
HPI - Neuro Symptoms/Deficit General Chief Complaint: Stroke Stated Complaint: STROKE ALERT,LKWT 1030AM,AMS,R WEAK,HIGH BP Time Seen by Provider: 07/30/21 11:45 Source: EMS Mode of arrival: EMS Limitations: altered mental status History of Present Illness HPI Narrative: Arrive by ambulance as code stroke,symptoms started at 10.30 AM ,at arrival aphasic, seizing . he was intubated with RSI at arrival by me for airway protection.He has hx of HTN no on anticoagulant. Onset (ago): hour(s) (/ ago) Last Observed Normal: 10:30 Timing confirmed by: family member Location: altered History of same: No Severity: severe Context: sudden onset On Anticoagulants: No Related Data Home Medications Medication Instructions Recorded Confirmed simethicone 125 mg chewable tablet 125 mg PO BID-QID PRN 02/12/20 06/08/21 (Gas Relief (simethicone)) dicyclomine 10 mg capsule 10 - 20 mg PO QID PRN 03/17/20 06/08/21 ketotifen fumarate 0.025 % (0.035 1 drp OPHTHALMIC-RIGHT TID PRN 10/12/20 06/08/21 %) eye drops Previous Rx's Medication Instructions Recorded ipratropium 0.5 mg-albuterol 3 mg 3 ml INHALATION Q4-6H PRN 30 Days 04/27/20 (2.5 mg base)/3 mL nebulization #270 ml soln pantoprazole 40 mg tablet,delayed 40 mg PO DAILY 90 Days #90 tab 12/09/20 release atorvastatin 40 mg tablet 40 mg PO DAILY 90 Days #90 tab 12/21/20 acetaminophen 500 mg tablet 500 mg PO Q6H PRN 30 Days #120 tab 01/10/21 cetirizine 10 mg tablet 10 mg PO DAILY PRN #90 tab 02/26/21 bisacodyl 5 mg tablet,delayed 10 mg PO ONCE 1 Days #2 tab 04/21/21 release (Dulcolax (bisacodyl)) amlodipine 5 mg tablet 5 mg PO DAILY 90 Days #90 tab 06/08/21 lisinopril 20 mg tablet 20 mg PO DAILY 90 Days #90 tab 06/08/21 cholecalciferol (vitamin D3) 50 50 mcg PO DAILY 90 Days #90 tab 07/05/21 mcg (2,000 unit) tablet montelukast 10 mg tablet 10 mg PO BEDTIME 90 Days #90 tab 07/06/21 Trelegy Ellipta 100 mcg-62.5 1 ea INHALATION DAILY #60 ea NS 07/17/21 mcg-25 mcg powder for inhalation (nrgksgveyxk-shqiorzor-gdiwuewb) fluticasone propionate 50 1 spray INTRANASAL DAILY #48 ml 07/18/21 mcg/actuation nasal spray,suspension albuterol sulfate 90 mcg/actuation 2 inh INHALATION Q4-6H #25.5 ea 07/27/21 aerosol inhaler Allergies Allergy/AdvReac Type Severity Reaction Status Date / Time Tetanus Toxoid Adsorbed Allergy Intermediate syncope Verified 07/28/21 13:01 Review of Systems Review of Systems: Yes unobtainable due to endotracheal tube, Unobtainable due to mental condition and Unobtainable due to mental status PMFSH Past Medical History Medical History Allergic rhinitis Centrilobular emphysema Cough variant asthma Epistaxis Essential hypertension Foot callus GERD (gastroesophageal reflux disease) Mild asthma Moderate asthma Pure hypercholesterolemia Urticaria Surgical History History of colonoscopy History of laparoscopic cholecystectomy Hx of cataract surgery Family History Family History Father No problems noted. Mother No problems noted. Paternal Grandmother Cancer Social History Social History Housing: Apartment Alcohol intake: former Patient Tobacco Use Status: Former Tobacco user Quit Date: 2014 Tobacco use type: Cigarette Years Smoked: 40+ e-Cigarette/Vaping Use: Never Used Second Hand Smoke Exposure: No Advance Directives: No Advance Directives Information Provided: No service: No Current occupational status: retired Physical Exam Vital Signs: Vital Signs: Last Vital Signs Temp 97.5 F 07/30/21 13:08 Pulse 80 07/30/21 13:08 Resp 20 07/30/21 13:08 BP 149/68 H 07/30/21 13:08 Pulse Ox 100 07/30/21 13:08 BMI result Body Mass Index 34.5 Const: Other: unresponsive seizing Nutritional Appearance: average body habitus Orientation/consciousness: Other orientation findings (unresponsive) HEENT: Other: pupis miotic Face and sinus: No abrasion and No ecchymosis Eyes: Other: miotic pupils Neck: Neck: Yes normal visual inspection Chest: Chest palpation & inspection: normal inspection of the chest Resp: Effort & Inspection: other (tachypneic) Auscultation: clear to auscultation bilaterally Cardio: Jugular venous distension: no JVD Rate: regular rate Rhythm: regular rhythm GI: Inspection: Yes normal to inspection Palpation (GI): Soft to palpation Neuro: Other: unresponsive does not follow command Course Reevaluation(s) Reevaluation #1: Spoke with John for transfer they will call me back Time: 12:05 Reevaluation #2: Spoke with Dr Mike Lopez they will call me back/ICU felow will call me back Time: 12:34 Reevaluation #3: Spoke with Dr Marquez ICU she accept the pt in transfer ,ambulance to be caled when bed is available,they anahy call back again Time: 12:35 Additional Reevaluation(s): Spoke with family daughter and daughter in law Procedures Intubation Time out performed: Yes sedative: Etomidate Mg Given: 20 paralytic: Succinylcholine Mg Given: 100 Laryngoscope: other (videolaryngoscopy) ET Tube Size: 7.5 ET Tube Uncuffed: No Tube Secured Depth (cm): 23 Tube Placement Confirmation: visualized tube passing through cords, equal breath sounds bilaterally, no breath sounds over epigastrium and confirmation by capnometry Patient Tolerated Procedure: well Intubation Complications: none MDM - Neuro Symptoms/Deficit Lab Data Result diagrams: 07/30/21 12:04 07/30/21 12:04 Labs: Lab Results 07/30/21 07/30/21 07/30/21 Range/Units 11:47 11:47 12:04 WBC 14.5 H (4.8-10.8) X10*3/uL RBC 4.84 (4.60-5.80) X10*6/uL Hgb 14.0 (14.0-18.0) g/dl Hct 43.0 (42.0-52.0) % MCV 88.8 (80.0-98.0) fL MCH 28.9 (27.0-33.0) pg MCHC 32.6 (31.0-36.0) g/dl RDW 14.5 (11.0-16.0) % Plt Count 395 (160-400) X10*3/uL MPV 8.7 L (9.4-12.4) fL Immature Gran % (Auto) 0.3 (0.0-0.4) % Neut % (Auto) 46.8 (45-73) % Lymph % (Auto) 38.3 (20-40) % [place] % (Auto) 10.0 (2-11) % Eos % (Auto) 3.7 (0-4) % Baso % (Auto) 0.9 (0-2) % Lymph # (Auto) 5.5 H (1.2-4.9) X10*3/uL [place] # (Auto) 1.5 H (0.1-1.2) X10*3/uL Eos # (Auto) 0.5 H (0.0-0.4) X10*3/uL Baso # (Auto) 0.1 (0.0-0.2) X10*3/uL Abs Immat Gran (auto) 0.04 H (0.00-0.03) X10*3/uL Absolute Neuts (auto) 6.8 (2.0-8.3) x10*3/uL Absolute Nucleated RBC 0.000 (0.0-0.012) X10*3/uL Nucleated RBC % (auto) 0.0 (0.0-0.2) /100WBC Smear Tech's Comments VERIFIED PT (9.9-13.0) SEC Whole Blood PT 12.3 (11.1-13.5) sec INR (0.9-1.1) Whole Blood INR 1.0 (0.9-1.1) APTT (24.1-38.0) SEC Sodium (135-145) mmol/L Potassium (3.3-5.1) mmol/L Chloride (96-108) mmol/L Carbon Dioxide (22-29) mmol/L Anion Gap (12-20) BUN (9-16) mg/dL Creatinine (0.5-1.4) mg/dL Estim Creat Clear Calc Estimated GFR POC Glucose 125 H (60-115) mg/dL Random Glucose (60-115) mg/dL Calcium (8.4-10.2) mg/dL Total Bilirubin (0.0-1.0) mg/dL AST (5-37) U/L ALT (0-40) U/L Alkaline Phosphatase (39-117) U/L Troponin I High Sens (<3.5-35.0) ng/L Total Protein (6.5-8.0) g/dL Albumin (3.5-5.0) g/dL COVID-19 ([facility]ON) (Negative) COVID-19 Clin Com 07/30/21 07/30/21 07/30/21 Range/Units 12:04 12:04 12:04 WBC (4.8-10.8) X10*3/uL RBC (4.60-5.80) X10*6/uL Hgb (14.0-18.0) g/dl Hct (42.0-52.0) % MCV (80.0-98.0) fL MCH (27.0-33.0) pg MCHC (31.0-36.0) g/dl RDW (11.0-16.0) % Plt Count (160-400) X10*3/uL MPV (9.4-12.4) fL Immature Gran % (Auto) (0.0-0.4) % Neut % (Auto) (45-73) % Lymph % (Auto) (20-40) % [place] % (Auto) (2-11) % Eos % (Auto) (0-4) % Baso % (Auto) (0-2) % Lymph # (Auto) (1.2-4.9) X10*3/uL [place] # (Auto) (0.1-1.2) X10*3/uL Eos # (Auto) (0.0-0.4) X10*3/uL Baso # (Auto) (0.0-0.2) X10*3/uL Abs Immat Gran (auto) (0.00-0.03) X10*3/uL Absolute Neuts (auto) (2.0-8.3) x10*3/uL Absolute Nucleated RBC (0.0-0.012) X10*3/uL Nucleated RBC % (auto) (0.0-0.2) /100WBC Smear Tech's Comments PT 11.8 (9.9-13.0) SEC Whole Blood PT (11.1-13.5) sec INR 1.0 (0.9-1.1) Whole Blood INR (0.9-1.1) APTT 30.9 (24.1-38.0) SEC Sodium 138 (135-145) mmol/L Potassium 4.4 (3.3-5.1) mmol/L Chloride 106 (96-108) mmol/L Carbon Dioxide 19 L (22-29) mmol/L Anion Gap 17 (12-20) BUN 15 (9-16) mg/dL Creatinine 1.47 H (0.5-1.4) mg/dL Estim Creat Clear Calc 46.6 Estimated GFR 46 POC Glucose (60-115) mg/dL Random Glucose 142 H (60-115) mg/dL Calcium 9.7 (8.4-10.2) mg/dL Total Bilirubin 0.6 (0.0-1.0) mg/dL AST 19 D (5-37) U/L ALT 18 (0-40) U/L Alkaline Phosphatase 82 (39-117) U/L Troponin I High Sens 3.5 (<3.5-35.0) ng/L Total Protein 8.2 H (6.5-8.0) g/dL Albumin 4.3 (3.5-5.0) g/dL COVID-19 ([facility]ON) (Negative) COVID-19 Clin Com 07/30/21 Range/Units 12:23 WBC (4.8-10.8) X10*3/uL RBC (4.60-5.80) X10*6/uL Hgb (14.0-18.0) g/dl Hct (42.0-52.0) % MCV (80.0-98.0) fL MCH (27.0-33.0) pg MCHC (31.0-36.0) g/dl RDW (11.0-16.0) % Plt Count (160-400) X10*3/uL MPV (9.4-12.4) fL Immature Gran % (Auto) (0.0-0.4) % Neut % (Auto) (45-73) % Lymph % (Auto) (20-40) % [place] % (Auto) (2-11) % Eos % (Auto) (0-4) % Baso % (Auto) (0-2) % Lymph # (Auto) (1.2-4.9) X10*3/uL [place] # (Auto) (0.1-1.2) X10*3/uL Eos # (Auto) (0.0-0.4) X10*3/uL Baso # (Auto) (0.0-0.2) X10*3/uL Abs Immat Gran (auto) (0.00-0.03) X10*3/uL Absolute Neuts (auto) (2.0-8.3) x10*3/uL Absolute Nucleated RBC (0.0-0.012) X10*3/uL Nucleated RBC % (auto) (0.0-0.2) /100WBC Smear Tech's Comments PT (9.9-13.0) SEC Whole Blood PT (11.1-13.5) sec INR (0.9-1.1) Whole Blood INR (0.9-1.1) APTT (24.1-38.0) SEC Sodium (135-145) mmol/L Potassium (3.3-5.1) mmol/L Chloride (96-108) mmol/L Carbon Dioxide (22-29) mmol/L Anion Gap (12-20) BUN (9-16) mg/dL Creatinine (0.5-1.4) mg/dL Estim Creat Clear Calc Estimated GFR POC Glucose (60-115) mg/dL Random Glucose (60-115) mg/dL Calcium (8.4-10.2) mg/dL Total Bilirubin (0.0-1.0) mg/dL AST (5-37) U/L ALT (0-40) U/L Alkaline Phosphatase (39-117) U/L Troponin I High Sens (<3.5-35.0) ng/L Total Protein (6.5-8.0) g/dL Albumin (3.5-5.0) g/dL COVID-19 ([facility]ANNON) Negative (Negative) COVID-19 Clin Com See Note Imaging Data CT scan - head: Radiologist's impression: Massive (8.9 x 5.2 cm at its maximum anteroposterior by transverse dimension) intraparenchymal hemorrhage is present at left frontal, parietal and temporal lobe associated with extensive vasogenic edema and midline shift measuring 1.1 cm. The contralateral right lateral ventricle appear dilated, secondary to mass effect. The suprasellar cistern is obliterated, consistent with uncal herniation. Evidence of right frontal encephalomalacia is noted at the site of prior hemorrhage as was detected on the study dated 07/15/2011. The study is technically limited due to motion related artifacts. CT/CT head for stroke IMPRESSION: Massive intraparenchymal hemorrhage (8.9 x 5.2 cm at its maximum anteroposterior by transverse dimension) at left frontal, parietal, temporal lobe associated with extensive vasogenic edema and midline shift measuring 1.1 cm. Evidence of uncal herniation is also present. ? This critical result was discussed with Dr. Corvi. OGLESBY at 11:59 AM on 07/30/2021. It was ascertained that the content and urgency of the report was understood at the time of direct communication. Dictated By: Jaylene Tse MD Signed By: <Electronically signed by Jaylene Tse MD in OV> 07/30/21 1204 Critical Care Time Critical Care Time Critical Care Time: Yes Total Critical Care Time: 60 Attestation: taking care of the pt,spoke with EMS/Family/multiple p[tho call to [facility] ,taking care of the pt Discharge Plan Discharge Clinical Impression: Intracranial hemorrhage Patient Disposition: Xfer Other Transfer Details: [facility] Prescriptions: No Action pantoprazole 40 mg tablet,delayed release (DR/EC) 40 mg PO DAILY 90 Days Qty: 90 3RF atorvastatin 40 mg tablet 40 mg PO DAILY 90 Days Qty: 90 3RF cetirizine 10 mg tablet 10 mg PO DAILY PRN (Reason: for allergies) Qty: 90 2RF bisacodyl [Dulcolax (bisacodyl)] 5 mg tablet,delayed release (DR/EC) 10 mg PO ONCE 1 Days Qty: 2 0RF Rx Instructions: Take 2 tablets at 12:00pm the day before your procedure, bowel prep cholecalciferol (vitamin D3) 50 mcg (2,000 unit) tablet 50 mcg PO DAILY 90 Days Qty: 90 1RF montelukast 10 mg tablet 10 mg PO BEDTIME 90 Days Qty: 90 3RF Trelegy Ellipta 100-62.5-25 mcg blister with device 1 ea inhalation DAILY Qty: 60 6RF fluticasone propionate 50 mcg/actuation spray,suspension 1 spray intranasal DAILY Qty: 48 3RF albuterol sulfate 90 mcg/actuation HFA aerosol inhaler 2 inh inhalation Q4-6H Qty: 25.5 1RF dicyclomine 10 mg capsule 10 - 20 mg PO QID PRN (Reason: cramps) 0RF simethicone [Gas Relief (simethicone)] 125 mg tablet,chewable 125 mg PO BID-QID PRN (Reason: Abdominal Distention) 0RF acetaminophen 500 mg tablet 500 mg PO Q6H PRN (Reason: fever or pain) 30 Days Qty: 120 4RF amlodipine 5 mg tablet 5 mg PO DAILY 90 Days Qty: 90 1RF lisinopril 20 mg tablet 20 mg PO DAILY 90 Days Qty: 90 1RF ipratropium-albuterol 0.5 mg-3 mg(2.5 mg base)/3 mL solution for nebulization 3 ml inhalation Q4-6H PRN (Reason: wheezing) 30 Days Qty: 270 6RF ketotifen fumarate 0.025 % (0.035 %) drops 1 drp ophthalmic-Right TID PRN (Reason: Eye Irritation) 0RF Interventions: ED Discharge Assessment Last Done: 07/30/21 14:01 Discharge Date/Time: 07/30/21 13:45
[2021-07-30 12:23] LABS: Partial Thromboplastin Time 30.9 SEC (24.1-38.0)
--- NOTE | 2021-07-30 12:29 | ECG_ITS ---
Test Reason : stroke Blood Pressure : / mmHG Vent. Rate : 094 BPM Atrial Rate : 094 BPM P-R Int : 186 ms QRS Dur : 084 ms QT Int : 344 ms P-R-T Axes : 068 050 100 degrees QTc Int : 430 ms Normal sinus rhythm ST & T wave abnormality, consider anterolateral ischemia Abnormal ECG When compared with ECG of 26-NOV-2017 23:41, T wave inversion now evident in Anterolateral leads Referred By: Vinnie Lemus Electronically Signed By:SHILO TAM
--- NOTE | 2021-07-30 12:41 | PC.NURSE ---
@ 12:39PM CALL RECEIVED FROM MEAGAN OF [facility] PT TX LINE WITH ROOM ASSIGNMENT AND ACCEPTING MD NAME CIRA 5TH FLOOR ROOM 5212 ACCEPTING MD IS: DR CARDENAS RN TO RN [phone]
[2021-07-30 12:45] LABS: SLIDE REVIEW VERIFIED
[2021-07-30] MEDS: MannitoL 12.5 GM/50 ML VIAL IV (12:46)
--- NOTE | 2021-07-30 12:51 | PC.NURSE ---
@ 12:48PM [facility] CALLED FOR ALS TRANSPORT TO [facility] BERMUDEZ ANSWERS AND GIVES WITHIN 1/2 HOUR ETA
[2021-07-30 12:52] LABS: Troponin-I High Sensitivity 3.5 ng/L (<3.5-35.0)
[2021-07-30 12:56] VITALS: BP 136/65; PULSE 85; RESP 20; TEMP 36.4; O2SAT 100
[2021-07-30 12:59] LABS: COVID-19 Test Negative (Negative); IDNOW Serial# 55D5AD1C
[2021-07-30 13:08] VITALS: BP 149/68; PULSE 80; RESP 20; TEMP 36.4; O2SAT 100
[2021-07-30 13:08] LABS: Alanine Aminotransferase 18 U/L (0-40); Albumin Level 4.3 g/dL (3.5-5.0); Alkaline Phosphatase 82 U/L (39-117); Anion Gap 17 (12-20); Aspartate Amino Transferase 19 U/L (5-37); Bilirubin Total 0.6 mg/dL (0.0-1.0); Blood Urea Nitrogen 15 mg/dL (9-16); Calcium 9.7 mg/dL (8.4-10.2); Carbon Dioxide 19 mmol/L (22-29); Chloride 106 mmol/L (96-108); Creatinine Clr Calc Pharmacy 46.6; Estimated Glomerular Filt Rate 46; Glucose Random 142 mg/dL (60-115); Potassium 4.4 mmol/L (3.3-5.1); Sodium 138 mmol/L (135-145); Total Protein 8.2 g/dL (6.5-8.0)
[2021-07-30] MEDS: niCARdipine HCL 25 MG in 0.9 % Sodium Chloride 250 ML 52 MG IVCONT (13:24)
[2021-07-30] MEDS: LORazepam 2 MG/ML VIAL 1 MG IVPUSH (13:28)
--- NOTE | 2021-07-30 13:47 | PC.NURSE ---
stroke alert called in for pt. per ems pt found unresponsive, last known well at approximately 1030 this morning. on arrival pt aphasic. pt brought to CT and began seizing right after. 3 20g iv lines established. labs drawn, meds given as documented. [place] [facility]. Report given to KANIKA Carver. pt's family in waiting room and was made aware of the plan of care.
== END 2021-07-30 13:45 | disposition other institution (70) ==
PROVIDERS: Nurse Practitioner Family; Emergency Provider Emergency Medicine; PCP Internal Medicine
DX: I62.9 Nontraumatic intracranial hemorrhage, unspecified (principal); R56.9 Unspecified convulsions; Z79.899 Other long term (current) drug therapy; Z87.891 Personal history of nicotine dependence; Z20.822 Contact with and (suspected) exposure to COVID-19
CPT/HCPCS: 31500; 36415; 70450; 71045; 80053; 82947; 84484; 85025; 85610; 85730; 87635; 93005; 94002; 96365; 96367; 96375; 96376; 99283; 99291; J0330; J1953; J2060; J2150; J3010